=== PATIENT | female | born 1990 | race African-American/Black ===

== ENCOUNTER 2017-09-21 18:01 | Emergency (ER) | payer OTHER ==
[~2017-09-21] VITALS: Ht 154.9 cm; Wt 67.1 kg
[2017-09-21 21:24] VITALS: BP 106/56
[2017-09-22 08:51] LABS: URINE BILIRUBIN NEGATIVE (Negative); URINE BLOOD TRACE (Negative); URINE CLARITY CLOUDY; URINE COLOR YELLOW; URINE GLUCOSE-RANDOM* NEGATIVE (Negative); URINE KETONES NEGATIVE (Negative); URINE NITRITE-REFLEX NEGATIVE (Negative); URINE PROTEIN (DIPSTICK) NEGATIVE (Negative); URINE SPECIFIC GRAVITY 1.025 (1.005-1.035)
[2017-09-22 08:52] LABS: URINE LEUKOCYTES-REFLEX TRACE (Negative)
[2017-09-23 15:10] LABS: NEISSERIA GONORRHEA-PCR Negative (Negative)
== END 2017-09-21 21:30 | disposition home or self-care (01) ==
LOC: ER 18:01
PROVIDERS: Emergency Medicine
DX: O20.0 Threatened abortion (principal); Z3A.01 Less than 8 weeks gestation of pregnancy

== ENCOUNTER 2019-08-09 09:42 | Emergency (ER) | payer OTHER ==
[~2019-08-09] VITALS: Ht 154.9 cm; Wt 77.1 kg
[2019-08-09 09:49] VITALS: BP 132/78
[2019-08-09 11:11] LABS: URINE BILIRUBIN NEGATIVE (Negative); URINE BLOOD 1+ (Negative); URINE CLARITY CLEAR; URINE COLOR YELLOW; URINE GLUCOSE-RANDOM* NEGATIVE (Negative); URINE KETONES NEGATIVE (Negative); URINE NITRITE-REFLEX NEGATIVE (Negative); URINE PROTEIN (DIPSTICK) NEGATIVE (Negative)
[2019-08-09 11:13] LABS: URINE LEUKOCYTES-REFLEX 1+ (Negative)
[2019-08-09 11:22] LABS: SQUAMOUS >10 Many /LPF (0-3)
[2019-08-09 11:23] LABS: BACTERIA-REFLEX >30 Many /HPF (None Seen); CASTS None Seen /LPF (None Seen); CRYSTALS None Seen /LPF (None Seen); MUCUS 0-3 Light strn/LPF (None Seen); URINE RBC 3-10 Few /HPF (0-2); URINE WBC-REFLEX 6-15 Few /HPF (0-5)
[2019-08-09 11:24] LABS: RENAL EPITHELIAL CELLS 0-3 Few /LPF (None Seen); TRANSITIONAL EPITHEL CELL 0-3 Few /LPF (None Seen)
[2019-08-09] MEDS ORDERED: CIPROFLOXACIN500 M1 PO (11:30)
[2019-08-09] MEDS ORDERED: CLOTRIMAZOLE-321 GM VAG (11:30)
== END 2019-08-09 11:50 | disposition home or self-care (01) ==
LOC: ER 09:42
PROVIDERS: Emergency Medicine
DX: O23.11 Infections of bladder in pregnancy, first trimester (principal); Z3A.09 9 weeks gestation of pregnancy

== ENCOUNTER 2019-10-20 13:59 | Emergency (ER) | payer OTHER ==
[~2019-10-20] VITALS: Ht 154.9 cm; Wt 77.1 kg
[~2019-10-20 13:59] MED LIST: CIPROFLOXACIN500 M1 PO; CLOTRIMAZOLE-321 GM VAG
[2019-10-20 14:32] LABS: ABSOLUTE NEUTROPHILS 4.1 thou/uL (1.4-8.2); BASOPHILS 0.6 % (0.0-2.0); EOSINOPHILS 0.7 % (0.0-3.0); HEMATOCRIT 38.3 % (37.0-47.0); MCH 27.9 pg (26.0-34.0); MCHC 34.1 g/dL (28.0-37.0); MCV 81.9 fL (80.0-100.0); MONOCYTES 7.3 % (1.0-8.0); PLATELET COUNT 232 thou/uL (150-400); POLYS 64.4 % (36.0-66.0); RBC 4.67 mil/uL (4.20-5.00); WBC 6.3 thou/uL (4.0-11.0)
[2019-10-20 14:43] LABS: CALCIUM 9.1 mg/dL (8.5-10.1); CREATININE 0.7 mg/dL (0.6-1.0); POTASSIUM 3.8 mmol/L (3.5-5.1)
[2019-10-20 14:49] LABS: ALBUMIN 3.3 g/dL (3.4-5.0); TOTAL BILIRUBIN 0.4 mg/dL (0.2-1.0); TOTAL PROTEIN 7.3 g/dL (6.4-8.2)
[2019-10-20 14:50] LABS: URINE BILIRUBIN NEGATIVE (Negative); URINE BLOOD 1+ (Negative); URINE CLARITY CLEAR; URINE COLOR YELLOW; URINE GLUCOSE-RANDOM* NEGATIVE (Negative); URINE KETONES 1+ (Negative); URINE NITRITE-REFLEX NEGATIVE (Negative); URINE PROTEIN (DIPSTICK) NEGATIVE (Negative); URINE SPECIFIC GRAVITY >= 1.030 (1.005-1.035)
[2019-10-20 14:51] LABS: URINE LEUKOCYTES-REFLEX 1+ (Negative)
[2019-10-20 15:19] LABS: CASTS None Seen /LPF (None Seen); CRYSTALS None Seen /LPF (None Seen); SQUAMOUS >10 Many /LPF (0-3)
[2019-10-20 15:20] LABS: URINE RBC 0-2 Rare /HPF (0-2); URINE WBC-REFLEX 6-15 Few /HPF (0-5)
[2019-10-20] MEDS ORDERED: NOHOMEMEDICATIONS (16:10)
[2019-10-20] MEDS ORDERED: KEFLEX500 M1 PO (17:44)
[2019-10-20 17:51] VITALS: BP 124/66
== END 2019-10-20 17:51 | disposition home or self-care (01) ==
LOC: ER 13:59
PROVIDERS: Physician Assistant
DX: O23.42 Unspecified infection of urinary tract in pregnancy, second trimester (principal); Z3A.18 18 weeks gestation of pregnancy